=== PATIENT | male | born 1930 | race Caucasian/White ===

== ENCOUNTER → 2020-04-22 | Outpatient (CLI) | payer MEDICARE ==
[2020-04-22 15:31] LABS: HCT 34.4 % (39.0-53.0); HGB 10.4 gm/dL (13.0-17.5); Hypochromasia Marked; MCH 27.2 pg (25.0-35.0); MCHC 30.1 g/dL (31.0-37.0); MCV 90.4 fL (80.0-100.0); Mean Platelet Volume 8.5; Platelet Count 155 k/uL (150-450); RBC 3.81 m/uL (4.30-5.90); WBC 4.9 k/uL (3.8-10.6)
[2020-04-22 15:38] LABS: Appearance,Urine Clear (Clear); Bilirubin,Urine Negative (Negative); Blood,Urine Negative (Negative); Color,Urine Yellow; Glucose,Urine (UA) Negative (Negative); Ketones,Urine Negative (Negative); Leukocyte Esterase,Urine Negative (Negative); Nitrite,Urine Negative (Negative); PH, Urine 6.5 (5.0-8.0); Protein,Urine Negative (Negative)
[2020-04-22 15:40] LABS: INR 1.2 (<1.2); Partial Thromboplastin Time 26.8 sec (22.0-30.0); Prothrombin Time 11.8 sec (9.0-12.0)
[2020-04-22 15:45] LABS: Albumin 4.1 g/dL (3.5-5.0); Total Bilirubin 0.6 mg/dL (0.2-1.3); Total Protein 7.2 g/dL (6.3-8.2)
== END | disposition home or self-care (01) ==
LOC: LABPAT 15:04
PROVIDERS: ATTEND Orthopaedic Surgery
DX: Z01.818 Encounter for other preprocedural examination (principal); Z01.812 Encounter for preprocedural laboratory examination
CPT/HCPCS: 36415; 80053; 81003; 85027; 85610; 85730; 87070; 93005

== ENCOUNTER 2020-05-07 10:59 | Day surgery (SDC) | payer MEDICARE ==
[2020-04-24 11:45] VITALS: BMI 29.4
[~2020-05-07 10:59] MED LIST: ACETAMINOPHEN TAB 500 MG TAB PO ONE; GABAPENTIN 300 MG CAP PO ONE; MELOXICAM 7.5 MG TAB PO ONE; TRANEXAMIC ACID 1,000 MG in SODIUM CHLORIDE 0.9% 100 ML IVPB ONE
[2020-05-07] MEDS ORDERED: NA PHOS,M-B/NA PHOS,DI-BA 133 ML ENEMA RECTAL PRN (11:18)
[2020-05-07] MEDS ORDERED: BISACODYL 10 MG SUPP RECTAL PRN (11:18)
[2020-05-07] MEDS ORDERED: ONDANSETRON 4 MG/2 ML VIAL IVP PRN (11:18)
[2020-05-07] MEDS ORDERED: NALOXONE 0.4 MG/ML 1 ML VIAL IV PRN (11:18)
[2020-05-07] MEDS ORDERED: HYDROcodone/APAP 5-325MG 1 EACH TAB PO PRN ×2 (11:18)
[2020-05-07] MEDS ORDERED: MAGNESIUM HYDROXIDE 2,400 MG/10 ML CUP PO PRN (11:18)
[2020-05-07] MEDS ORDERED: HYDROmorphone 0.5 MG/0.5 ML SYRINGE IVP PRN ×3 (11:18)
[2020-05-07] MEDS ORDERED: ACETAMINOPHEN TAB 500 MG TAB ONE (11:52)
[2020-05-07] MEDS ORDERED: ONDANSETRON 4 MG/2 ML VIAL ONE (11:53)
[2020-05-07] MEDS ORDERED: DEXAMETHASONE SOD PHOSPHATE 10 MG/ML 1 ML VIAL IV ONE (12:00)
[2020-05-07] MEDS ORDERED: fentaNYL (PF) 50 MCG/ML 2 ML AMP IV ONE (12:14)
[2020-05-07] MEDS ORDERED: MIDAZOLAM 2 MG/2 ML VIAL IV ONE (12:14)
[2020-05-07] MEDS: LACTATED RINGERS 1,000 ML IV SCH ×2 (12:24→17:52)
[2020-05-07] MEDS ORDERED: MIDAZOLAM 2 MG/2 ML VIAL ONE (13:29)
[2020-05-07] MEDS ORDERED: PROPOFOL 10 MG/ML 20 ML VIAL IV ONE (13:29)
[2020-05-07] MEDS ORDERED: fentaNYL (PF) 50 MCG/ML 2 ML AMP ONE (13:29)
[2020-05-07] MEDS ORDERED: TRANEXAMIC ACID 1,000 MG/10 ML VIAL ONE (13:29)
[2020-05-07] MEDS ORDERED: ePHEDrine SULFATE/0.9% NACL/PF 50 MG/5 ML SYRINGE IV ONE (13:29)
[2020-05-07] MEDS ORDERED: SODIUM CHLORIDE 0.9% 100 ML BAG ONE (13:29)
[2020-05-07] MEDS ORDERED: ceFAZolin 3,000 MG in SODIUM CHLORIDE 0.9% IRRIGATIO 3,000 ML IRRIGATION ONE (13:34)
[2020-05-07] MEDS: ROPIVACAINE 246.25 MG, EPINEPHrine 0.5 MG, KETOROLAC 30 MG, cloNIDine HCL/PF 80 MCG, WA... MISCELLANE ONE ×10 (14:10→14:32)
--- NOTE | 2020-05-07 14:55 | P.OP ---
Date of Procedure: 05/07/20 Preoperative Diagnosis: Severe osteoarthritis left knee Postoperative Diagnosis: Severe osteoarthritis left knee Procedure(s) Performed: Left total knee arthroplasty Implants: Morris and Nephew Journey II CR Oxinium cruciate retaining femoral component size 7, left Morris & Nephew Journey left nonporous tibial baseplate size 6 Morris [employer] Nephew Journey II, XLPE Deep Dished articular insert, size 9 mm, Size 5- 6 left [employer]hew Journey BCS resurfacing oval patellar component, 32 mm All components were cemented using [place]os R bone cement.. The articulation is Oxinium on polyethylene. Anesthesia: spinal Surgeon: Hank Mcmahon Boiler Erector #1: Nereida Pimentel Estimated Blood Loss (ml): 50 Pathology: other (Bone and cartilage) Condition: stable Disposition: PACU Indications for Procedure: After failure of conservative treatment we discussed the surgical and nonsurgical treatment options at length. Patient wishes to proceed with a total knee arthroplasty. Complications specific to this procedure were discussed at length, including but not limited to infection, bleeding, stiffness, and nerve injury. Covid-19 was also discussed at length with the patient, and they are aware of the current policies and procedures. The patient was given the option of delaying surgery, but they elect to proceed knowing these risks. Patient is aware of all these complications and informed consent was obtained Operative Findings: The operative findings are consistent with severe osteoarthritis of the left knee Description of Procedure: Patient was seen in the preoperative area consent was reviewed and operative site was marked with a skin marker. An adductor canal pain catheter was placed by anesthesia in the preoperative area. Patient was then brought to the operating room and given preoperative antibiotics intravenously. A spinal anesthetic was administered by the anesthesia department. A tourniquet was placed on the upper thigh and the lower extremity was prepped and draped in usual sterile fashion. A gram of transexamic acid was given. A universal timeout was then performed which confirmed the patient's name, surgical site, ALLERGIES, and consent. The lower extremity was then exsanguinated and tourniquet was inflated to 250 mmHg. A standard and anterior midline approach to the knee was performed. The skin and subcutaneous tissue was dissected down to the patellar tendon. A medial parapatellar arthrotomy was then performed. The knee was then extended, the patellar was everted, and the knee was again flexed. The patellar fat pad was removed in order to enhance exposure. Anterior horns of both menisci were excised, and a release was performed to the posterior medial aspect of the knee. On gross visual inspection, there was complete loss of articular cartilage in the medial and patellofemoral joint spaces. There was also significant cartilage damage in the lateral compartment. There were multiple periarticular osteophytes which were then removed with a Ronguer. The femoral canal was then opened with the 9.5 mm intramedullary drill. The 8 mm intramedullary mitra was then inserted into the femoral canal. The distal femoral cutting guide was then placed and set for 5 of valgus. The distal femoral cutting block was then pinned in place. The intramedullary mitra was then removed, and the distal femur was then cut. The cutting block was then removed and the cut was checked for symmetry. Next, the sizing guide was then placed and set for 3 external rotation based off of the epicondylar axis and Whitesides line. Pins were then placed and the drill holes, and the femur was sized with the sizing stylus. The pins were then removed, and the sizing guide was then removed. The spikes of the femoral block was then placed into the predrilled holes, and malleted into place. Two 45 mm pins were then placed into the fixation holes on the cutting block. An robbie wing was then used to ensure there would be no notching with the anterior cut. The anterior condyles were cut without notching. The anterior cord cut was then performed, followed by the posterior cut, posterior chamfer cut, and the anterior chamfer cut. The collateral ligaments were protected during the entire process. The cutting block was then removed, and the femoral canal was plugged with autologous bone. Attention was then directed to the tibia. The remaining ACL was removed with a Ronguer, and the tibia was then gently subluxed forward with a large bent knee retractor. Any remaining menisci was excised. The posterior lateral corner was cauterized in order to cauterize the lateral geniculate artery. The extra medullary tibial cutting guide was then placed, set for the appropriate rotation, slope, and depth of resection. The proximal tibia cutting guide was then pinned in place. Proximal tibia was then cut and sized. Next trials were then placed with the appropriate-sized insert. The knee was able to fully extend and flex to 130 and was stable throughout all range of motion. The knee was then extended, patella everted. Patella was then measured, and then using an osteotomy guide, the patella was cut at the appropriate level. The patella was then measured and drilled and the patella trial was then placed. The knee was then taken through range of motion with the patella trial and the patella tracked normally. The knee was then extended patella trial was then removed and the patella was everted. Knee was then flexed and lug holes were drilled through the femoral trial and the femoral trial was then removed. The tibial was then exposed, and the tibial broach guide was then pinned in place after it was set for the appropriate rotation to allow for the most coverage without overhang. The tibia was then reamed and broached. The cut surfaces of bone were then irrigated with pulsatile lavage. The posterior structures were injected with the ropivacaine solution. The knee was also irrigated with Irrisept solution. The components were then opened, the cement was mixed, and the components were then cemented in place. The cement was allowed to harden with the knee in full extension. While the cement was hardening, the remaining soft tissues were then injected with a ropivacaine solution, which consisted of 246.25 mg of ropivacaine, 0.5 mg of epinephrine, 30 mg of Toradol, 80 g of clonidine, and 48.45 mL of sterile water, for a total of 100 mL of fluid injected. After the cemented hardened. The tourniquet was released, and hemostasis was obtained. A second gram of transexamic acid was given. The knee was again irrigated. The knee was again taken through range of motion and found to be stable throughout all range of motion of 0-130, and the patella tracked normally. The fascia was then closed with #2 strata fix suture. The subcutaneous tissue was closed with 3-0 Vicryl and 3-0 strata fix. Dermabond glue was used for the skin and placed with the knee in flexion. The p atient was placed in a sterile silver dressing. Patient was then transferred to recovery room in stable condition. The recreational assistant PATRICIA Art was required due the complexity surgery and the need for a skilled assistant professor surgical technology. She assisted in positioning, draping, retraction, and closure of the wound.
--- NOTE | 2020-05-07 14:57 | P.ANPRN ---
Procedure Note - Anesthesia - Nerve Block Performed Left Adductor Canal Infusion Time Out Performed: Yes (1213) Date of Procedure: 05/07/20 Procedure Start Time: 12:13 Procedure Stop Time: 12:20 Location of Patient: PreOp Indication: Acute Post-Operative Pain, Dx/Pain Location, Requested by Surgeon Sedation Type: Sedate with meaningful contact maintained Preparation: Sterile Prep Position: Supine Catheter: Indwelling Needle Types: Pajunk Needle Gauge: 21 Ultrasound used to visualize needle placement: Yes Ultrasound used to observe medication spread: Yes Injectate: 0.5% Ropivacaine (see comment for volume) (20ml) Blood Aspirated: No Pain Paresthesia on Injection Noted: No Resistance on Injection: Normal Image Stored and Saved: Yes Events: Uneventful and Well Tolerated
[2020-05-07] MEDS ORDERED: ROPIVACAINE 0.2%-NS ON-Q PUMP 1,090 MG, EMPTY PAIN BALL 1 EACH MISCELLANE PRN (15:30)
--- NOTE | 2020-05-07 16:15 | XR ---
EXAMINATION TYPE: XR knee limited LT DATE OF EXAM: 05/07/2020 CLINICAL HISTORY: Postoperative evaluation Two views of the left knee are submitted. Identified are changes of total knee arthroplasty with fem oral and tibial components appearing well seated. Postsurgical soft tissue changes are noted. Align ment is anatomic.
[2020-05-07] MEDS: SODIUM CHLORIDE 0.9% 1,000 ML IV SCH ×2 (17:52→21:38)
[2020-05-07] MEDS ORDERED: APIXABAN 5 MG TAB PO SCH (21:00)
[2020-05-07] MEDS ORDERED: SENNOSIDES-DOCUSATE SODIUM 1 EACH TAB PO SCH (21:00)
--- NOTE | 2020-05-07 21:34 | P.CONS ---
History of Present Illness - Reason for Consult Consult date: 05/07/20 - History of Present Illness The patient was seen and examined on the surgical unit at 8:45 PM on 05/07 The patient is an 89-year-old male with a PMH of hypertension, hyperlipidemia, type II DM, and A. fib on Eliquis was admitted to the hospital for an elective left total knee replacement which he underwent earlier today. The patient was seen postoperatively on the surgical unit. He reported excellent control of his pain, currently at a 2 out of 10 at time of the interview. He denied any additional complaints. He denied chest pain, shortness of breath, sore throat fever, chills, nausea, vomiting, or abdominal pain. He reported compliance with all of his home medications. Review of Systems Pertinent positives and negatives as discussed in HPI, a complete review of systems was performed and all other systems are negative. Past Medical History Past Medical History: Atrial Fibrillation, Cancer, Chest Pain / Angina, Heart Failure, GERD/Reflux, Hypertension, Myocardial Infarction ([place]), Osteoarthritis ([place]), Thyroid Disorder Additional Past Medical History / Comment(s): [place] X2 ( 1978 & 1987)., PACEMAKER ([facility]), OCCASIONAL SWELLING LOWER EXTREMITIES., SKIN CANCER., STATES OCCASIONAL BLACK STOOLS-HE WILL INFORM HIS PCP. very concerned about lack of sphincter muscle control-does have accidents Last Myocardial Infarction Date:: 1987 History of Any Multi-Drug Resistant Organisms: None Reported Past Surgical History: Appendectomy, Back Surgery, Cholecystectomy, Coronary Bypass/CABG, Heart Catheterization, Pacemaker Additional Past Surgical History / Comment(s): BACK SURGERY (1972, 1974)., CABG (1978,1987), PACEMAKER ([facility] 1987).,. PILONIDAL CYST, EXPLORATORY LEFT KNEE. Past Anesthesia/Blood Transfusion Reactions: No Reported Reaction Type of Cardiac Device: Permanent Pacemaker Device Placement Date:: UNKNOWN Past Psychological History: Anxiety, Depression Smoking Status: Never smoker Past Alcohol Use History: Occasional Past Drug Use History: None Reported - Past Family History Mother Family Medical History: Cancer Father Family Medical History: Cancer Sister(s) Family Medical History: Cancer Brother(s) Family Medical History: Cancer Medications and Allergies Home Medications Medication Instructions Recorded Confirmed Type Apixaban [Eliquis] 2.5 mg PO BID 04/24/20 05/07/20 History Aspirin [Adult Low Dose Aspirin EC] 81 mg PO DAILY 04/24/20 05/07/20 History Atorvastatin [Lipitor] 40 mg PO DAILY 04/24/20 05/07/20 History Calcium Carbonate [Tums] 500 mg PO DIRECTED PRN 04/24/20 05/07/20 History Cholecalciferol [Vitamin D3 (25 1,000 unit PO DAILY 04/24/20 05/07/20 History Mcg = 1000 Iu)] Diazepam [Valium] 0.125 mg PO DIRECTED PRN 04/24/20 05/07/20 History Ezetimibe [Zetia] 10 mg PO HS 04/24/20 05/07/20 History Furosemide [Lasix] 20 mg PO DAILY@1500 04/24/20 05/07/20 History Isosorbide Mononitrate ER [Imdur] 60 mg PO DAILY 04/24/20 05/07/20 History Krill Oil 500 mg PO DAILY 04/24/20 05/07/20 History Levothyroxine Sodium [Synthroid] 100 mcg PO DAILY 04/24/20 05/07/20 History Lisinopril [Zestril] 2.5 mg PO DAILY 04/24/20 05/07/20 History Metoprolol Succinate [Toprol XL] 50 mg PO DAILY 04/24/20 05/07/20 History Nitroglycerin Sl Tabs [Nitrostat] 0.4 mg SUBLINGUAL Q5M PRN 04/24/20 05/07/20 History [place]-3 Fatty Acids/Fish Oil [Fish 1 each PO DAILY 04/24/20 05/07/20 History Oil 1,000 mg Softgel] Omeprazole [PriLOSEC] 20 mg PO AC-BRKFST 04/24/20 05/07/20 History Potassium Chloride 8 meq PO TID 04/24/20 05/07/20 History Allergies Allergy/AdvReac Type Severity Reaction Status Date / Time Sulfa (Sulfonamide Allergy Unknown Rash/Hives Verified 05/07/20 11:44 Antibiotics) Physical Exam Vitals: Vital Signs Temp Pulse Pulse Resp BP Pulse Ox 05/07/20 17:26 65 17 113/63 93 L 05/07/20 17:02 60 14 114/58 98 05/07/20 16:33 62 16 115/64 97 05/07/20 16:15 63 16 119/62 98 06/23/20 16:02 65 16 108/55 97 05/07/20 15:46 66 16 104/58 96 05/07/20 15:30 63 14 101/57 96 05/07/20 15:29 97.0 F L 67 14 109/56 95 05/07/20 11:45 97.5 F L 69 16 136/75 97 Intake and Output 05/07/20 05/07/20 05/07/20 06:59 14:59 22:59 Intake Total 451 50 Output Total 50 Balance 401 50 Intake: IV 451 50 Output: Estimated Blood Loss 50 Other: Weight 88 kg 88 kg General: non toxic, no distress, appears at stated age, overweight Derm: no unusual rashes/lesions no unusual ecchymoses, warm, dry Head: atraumatic, normocephalic, symmetric Eyes: EOMI, no lid lag, anicteric sclera, pupils equal round reactive to light ENT: Nose and ears atraumatic, no thrush, no pharyngeal erythema Neck: No thyromegaly, no cervical lymphadenopathy, trachea midline, supple Mouth: no lip lesion, mucus membranes moist Cardiovascular: S1S2 reg, no murmur, positive posterior tibial pulse bilateral, no edema, capillary refill less than 2 seconds Lungs: CTA bilateral, no rhonchi, no rales , no accessory muscle use Abdominal: soft, nontender to palpation, no guarding, no appreciable organomegaly, normal bowel sounds Ext: no gross muscle atrophy, left knee with Michel bandage in place, clean and dry, no contractures, Neuro: CN II-XI grossly intact, light touch intact all 4 extremities, finger to nose within normal limits, Psych: Alert, oriented, appropriate affect Assessment and Plan Plan: Type II DM -Lispro sliding scale with blood glucose monitoring A. fib -Continue with home med Eliquis Hyperlipidemia -Continue with home Lipitor dose 40 mg daily Hypothyroidism -Continue with levothyroxine 100 g dose daily Coronary artery disease -Continue with home med aspirin Hypertension -Continue with home lisinopril, Imdur, and metoprolol Status post left total knee replacement -Management including pain control as per the surgery service
[2020-05-08] MEDS ORDERED: DIAZEPAM 5 MG TAB PO PRN (00:46)
[2020-05-08] MEDS ORDERED: LEVOTHYROXINE 100 MCG TAB PO SCH (06:30)
[2020-05-08 07:43] LABS: Glucose,Whole Blood 150 mg/dL (75-99)
[2020-05-08] MEDS: INSULIN ASPART (NovoLOG) 100 UNIT/ML VIAL SQ SCH ×2 (07:46→11:19)
[2020-05-08 08:06] VITALS: BP 102/61; PULSE 63; RESP 18; TEMP 97.6
[2020-05-08] MEDS ORDERED: ISOSORBIDE MONONITRATE ER 60 MG TAB.ER.24H PO SCH (09:00)
[2020-05-08] MEDS ORDERED: ASPIRIN 81 MG PO SCH ×2 (09:00→16:00)
[2020-05-08] MEDS ORDERED: ATORVASTATIN 40 MG TAB PO SCH (09:00)
[2020-05-08] MEDS ORDERED: LISINOPRIL 2.5 MG TAB PO SCH (09:00)
[2020-05-08] MEDS ORDERED: METOPROLOL SUCCINATE (ER) 50 MG TAB.ER.24H PO SCH (09:00)
[2020-05-08] MEDS ORDERED: traMADol 50 MG TAB PO PRN ×2 (09:42)
--- NOTE | 2020-05-08 09:48 | P.DS ---
Providers Expected date of discharge: 05/08/20 Attending physician: Hank Mcmahon Consults: 05/07/20 11:18 Consult Physician Routine Consulting Provider: Kirstin Bran Consult Reason/Comments: medical management Do you want consulting provider notified?: Yes Primary care physician: Stated None - Discharge Diagnosis(es) (1) Osteoarthritis of left knee Current Visit: Yes Status: Acute (2) Status post total left knee replacement Current Visit: Yes Status: Acute Hospital Course: This is an 89-year-old male with known history of degenerative arthritis of the left knee. The patient presents for evaluation. After discussion and consideration patient elects to proceed with total knee arthroplasty. The patient is seen preoperatively by Dr. Mcmahon and medically cleared for surgery by their primary care physician. Patient is admitted to [facility] on 05/07/2020 for total knee arthroplasty. The procedures performed without complication or sequelae. The patient is doing well postoperatively. Labs and vital signs are stable on day of discharge. On day of discharge patient's knee incision is healing well. There is minimal erythema. There is no drainage noted at this time. There is minimal soft tissue swelling to the knee. Patient has full foot and ankle motion without difficulty or pain. Calf is soft and nontender to palpation. Neurovascular status to the left lower extremity is intact. Patient is discharged home in good condition. Opioid start talking form is reviewed and signed at patient bedside. Please see med rec for accurate list of home medications. Plan - Discharge Summary Discharge Rx Participant: Yes New Discharge Prescriptions: New Sennosides [Senokot] 2 tab PO DAILY PRN #60 tablet PRN Reason: Constipation traMADol HCl [Ultram] 50 mg PO Q6H PRN #28 tab PRN Reason: Pain No Action Atorvastatin [Lipitor] 40 mg PO DAILY Apixaban [Eliquis] 2.5 mg PO BID Aspirin [Adult Low Dose Aspirin EC] 81 mg PO DAILY Diazepam [Valium] 0.125 mg PO DIRECTED PRN PRN Reason: Anxiety Ezetimibe [Zetia] 10 mg PO HS [place]-3 Fatty Acids/Fish Oil [Fish Oil 1,000 mg Softgel] 1 each PO DAILY Krill Oil 500 mg PO DAILY Furosemide [Lasix] 20 mg PO DAILY@1500 Isosorbide Mononitrate ER [Imdur] 60 mg PO DAILY Levothyroxine Sodium [Synthroid] 100 mcg PO DAILY Lisinopril [Zestril] 2.5 mg PO DAILY Metoprolol Succinate [Toprol XL] 50 mg PO DAILY Nitroglycerin Sl Tabs [Nitrostat] 0.4 mg SUBLINGUAL Q5M PRN PRN Reason: Chest Pain Calcium Carbonate [Tums] 500 mg PO DIRECTED PRN PRN Reason: Gi Upset Omeprazole [PriLOSEC] 20 mg PO AC-BRKFST Potassium Chloride 8 meq PO TID Cholecalciferol [Vitamin D3 (25 Mcg = 1000 Iu)] 1,000 unit PO DAILY Discharge Medication List Apixaban [Eliquis] 2.5 mg PO BID 04/24/20 [History] Aspirin [Adult Low Dose Aspirin EC] 81 mg PO DAILY 04/24/20 [History] Atorvastatin [Lipitor] 40 mg PO DAILY 04/24/20 [History] Calcium Carbonate [Tums] 500 mg PO DIRECTED PRN 04/24/20 [History] Cholecalciferol [Vitamin D3 (25 Mcg = 1000 Iu)] 1,000 unit PO DAILY 04/24/20 [History] Diazepam [Valium] 0.125 mg PO DIRECTED PRN 04/24/20 [History] Ezetimibe [Zetia] 10 mg PO HS 04/24/20 [History] Furosemide [Lasix] 20 mg PO DAILY@1500 04/24/20 [History] Isosorbide Mononitrate ER [Imdur] 60 mg PO DAILY 04/24/20 [History] Krill Oil 500 mg PO DAILY 04/24/20 [History] Levothyroxine Sodium [Synthroid] 100 mcg PO DAILY 04/24/20 [History] Lisinopril [Zestril] 2.5 mg PO DAILY 04/24/20 [History] Metoprolol Succinate [Toprol XL] 50 mg PO DAILY 04/24/20 [History] Nitroglycerin Sl Tabs [Nitrostat] 0.4 mg SUBLINGUAL Q5M PRN 04/24/20 [History] [place]-3 Fatty Acids/Fish Oil [Fish Oil 1,000 mg Softgel] 1 each PO DAILY 04/24/20 [History] Omeprazole [PriLOSEC] 20 mg PO AC-BRKFST 04/24/20 [History] Potassium Chloride 8 meq PO TID 04/24/20 [History] Sennosides [Senokot] 2 tab PO DAILY PRN #60 tablet 05/08/20 [Rx] traMADol HCl [Ultram] 50 mg PO Q6H PRN #28 tab 05/08/20 [Rx] Follow up Appointment(s)/Referral(s): Hank Mcmahon DO [Doctor of Osteopathic Medicine] - 2 Weeks Activity/Diet/Wound Care/Special Instructions: Weightbearing as tolerated with a walker. CPM 5-6h daily. Leave dressing intact. May be removed by home care nurse or by patient in 10 days. May shower with dressing on. Continue Eliquis and aspirin for anticoagulation. Recommend use of compression stockings daily until follow up to help prevent swelling and blood clots. May remove at night before sleeping. Please follow up with [facility] and call with any questions or concerns, . Discharge Disposition: HOME WITH HOME HEALTH SERVICES
[2020-05-08 09:55] LABS: Anisocytosis Slight; Basophils % (A) 0 %; Eosinophils % (A) 0 %; HCT 32.1 % (39.0-53.0); HGB 9.7 gm/dL (13.0-17.5); Hypochromasia Marked; Lymphocytes # (A) 0.7 k/uL (1.0-4.8); Lymphocytes % (A) 6 %; MCH 28.1 pg (25.0-35.0); MCHC 30.2 g/dL (31.0-37.0); MCV 92.9 fL (80.0-100.0); Mean Platelet Volume 8.7; Monocytes # (A) 0.5 k/uL (0-1.0); Monocytes % (A) 4 %; Neutrophils # (A) 11.4 k/uL (1.3-7.7); Neutrophils % (A) 90 %; Platelet Count 134 k/uL (150-450); RBC 3.46 m/uL (4.30-5.90); RDW 17.2 % (11.5-15.5); WBC 12.7 k/uL (3.8-10.6)
[2020-05-08 11:19] LABS: Glucose,Whole Blood 182 mg/dL (75-99)
--- NOTE | 2020-05-08 12:18 | P.PN ---
Progress Note - Text 05/08 634am 89-year-old male status post total knee replacement by Dr. Mckinney height off. Patient has an On-Q pump for postop pain control with solution running at 8 mL an hour. Patient seen and evaluated this morning, patient has a VAS score of 0 ambulating very well. Plan to continue On-Q pump infusion
--- NOTE | 2020-05-08 13:56 | P.PN ---
Subjective Progress Note Date: 05/08/20 Principal diagnosis: knee pain Patient is an 89-year-old male with atrial fibrillation on Eliquis, diabetes mellitus type 2, hypertension, and dyslipidemia who presented for elective left total knee arthroplasty. He underwent procedure without any immediate postoperative complications. Patient seen and examined. He states his pain is well controlled and much corry r than prior to surgery. He is already been up and ambulating with physical therapy. He is feeling well. No chest pain, shortness breath, nausea, vomiting, lightheadedness, or dizziness. No complaints currently. Plan is for outpatient physical therapy is playful drive him. Objective - Vital Signs Vital signs: Vital Signs Temp 97.6 F 05/08/20 07:12 Pulse 63 05/08/20 07:12 Resp 18 05/08/20 07:45 BP 102/61 05/08/20 07:12 Pulse Ox 97 05/08/20 07:12 Intake & Output 05/07/20 05/08/20 05/08/20 18:59 06:59 18:59 Intake Total 501 Output Total 50 200 Balance 451 -200 Weight 88 kg Intake: IV 501 Output: Urine 200 Estimated Blood Loss 50 - Exam General: non toxic, no distress, appears at stated age Derm: Dressing in place over left knee warm, dry Head: atraumatic, normocephalic, symmetric Eyes: EOMI, no lid lag, anicteric sclera Mouth: no lip lesion, mucus membranes moist Cardiovascular: S1-S2 irregular without murmur, positive posterior tibial pulse bilateral, Lungs: CTA bilateral, no rhonchi, no rales , no accessory muscle use Abdominal: soft, nontender to palpation, no guarding, no appreciable organomegaly Ext: no gross muscle atrophy, no edema, no contractures Neuro: CN II-XI grossly intact, no focal neuro deficits Psych: Alert, oriented, appropriate affect - Labs CBC & Chem 7: 05/08/20 08:34 Labs: Abnormal Lab Results - Last 24 Hours (Table) 05/08/20 05/08/20 Range/Units 07:41 08:34 WBC 12.7 H (3.8-10.6) k/uL RBC 3.46 L (4.30-5.90) m/uL Hgb 9.7 L (13.0-17.5) gm/dL Hct 32.1 L (39.0-53.0) % MCHC 30.2 L (31.0-37.0) g/dL RDW 17.2 H (11.5-15.5) % Plt Count 134 L (150-450) k/uL Neutrophils # 11.4 H (1.3-7.7) k/uL Lymphocytes # 0.7 L (1.0-4.8) k/uL POC Glucose (mg/dL) 150 H (75-99) mg/dL Assessment and Plan Assessment: Patient is a 89-year-old male status post left total knee arthroplasty. Acute blood loss anemia on top of chronic anemia -Acceptable for surgery, and anticipated outcome -Outpatient follow-up CBC -No indication for iron at this point in time Thrombocytopenia and leukocytosis - mild and likely reactive - no post op fever Type 2 diabetes mellitus - diet controlled - BS acceptable after surgery Atrial fibrillation -Resume Eliquis today -Metoprolol Dyslipidemia -Statin Hypothyroidism -Synthroid Coronary artery disease -Aspirin, statin Hypertension, controlled -Lisinopril, Imdur, metoprolol Medically optimized for discharge
[2020-05-08] MEDS ORDERED: FUROSEMIDE 20 MG TAB PO SCH (15:00)
[2020-05-08] MEDS ORDERED: APIXABAN 2.5 MG TABLET PO SCH (16:00)
[2020-05-08] MEDS ORDERED: EZETIMIBE 10 MG TAB PO SCH (21:00)
== END 2020-05-08 14:16 | disposition home health service (06) ==
LOC: OR 10:59 → 4SSUR 15:23 → OR 05-08 14:16
PROVIDERS: ATTEND Orthopaedic Surgery
DX: M17.12 Unilateral primary osteoarthritis, left knee (principal); D62 Acute posthemorrhagic anemia; D69.6 Thrombocytopenia, unspecified; D72.829 Elevated white blood cell count, unspecified; I11.0 Hypertensive heart disease with heart failure; I50.9 Heart failure, unspecified; E78.5 Hyperlipidemia, unspecified; E03.9 Hypothyroidism, unspecified; I25.2 Old myocardial infarction; I25.10 Atherosclerotic heart disease of native coronary artery without angina pectoris; I48.91 Unspecified atrial fibrillation; H91.90 Unspecified hearing loss, unspecified ear; K21.9 Gastro-esophageal reflux disease without esophagitis; F32.9 Major depressive disorder, single episode, unspecified; F41.9 Anxiety disorder, unspecified; E11.9 Type 2 diabetes mellitus without complications; Z97.3 Presence of spectacles and contact lenses; Z88.2 Allergy status to sulfonamides; Z95.1 Presence of aortocoronary bypass graft; Z90.49 Acquired absence of other specified parts of digestive tract; Z98.890 Other specified postprocedural states; Z82.49 Family history of ischemic heart disease and other diseases of the circulatory system; Z79.01 Long term (current) use of anticoagulants; Z79.82 Long term (current) use of aspirin; Z79.890 Hormone replacement therapy; Z79.899 Other long term (current) drug therapy; Z95.0 Presence of cardiac pacemaker; Z85.828 Personal history of other malignant neoplasm of skin; Z80.9 Family history of malignant neoplasm, unspecified
CPT/HCPCS: 97110; 97161; 64448; 76942; 85025; 73560; 27447; C1713; C1776; J2250; J0171; J1100; J0690 ×3; J2405; J3010; J1885; J2795 ×2; J0735; 88300